=== PATIENT | male | born 1995 | race Caucasian/White ===

== ENCOUNTER 2022-05-04 12:46 | Emergency (ER) | payer MEDICAID, SELFPAY ==
[2022-05-04 13:01] VITALS: BP 141/88; PULSE 111; RESP 18; TEMP 37.2; O2SAT 98
--- NOTE | 2022-05-04 13:07 | XR_ITS ---
WS: [id number] Portable AP upright chest, 05/04/2022 Clinical Data: cough Comparison: None. Findings: No nodules, masses or effusions are seen. The heart is normal. The pulmonary vascularity is not increased. No pneumonia or pneumothorax is seen. XR/XR chest 1V portable [id number] Impression: Negative chest.
--- NOTE | 2022-05-04 13:24 | W.ED.URI ---
HPI - URI/Sore Throat General: Chief Complaint: General Medical Stated Complaint: coughing up black/joya mucus Time Seen by Provider: 05/04/22 13:05 Source: patient Mode of arrival: ambulatory Limitations: no limitations History of Present Illness: Patient is a 26-year-old male presents to ED today with complaints of a cough over the past week or so. States he is coughing up joya like phlegm. He is also complaining of some nasal congestion. He has no chest pain, shortness of breath, difficulty breathing. No fevers. He has not complained of a sore throat or difficulty swallowing. Patient is an otherwise healthy 26-year-old male with no known PMH. MD elicited complaint: cough Onset (ago): week(s) Consistency: intermittent Severity: mild Able to tolerate fluids by mouth: Yes Associated symptoms: Reports no associated symptoms and nasal congestion; Deny abdominal pain, chills, chest pain, diarrhea, ear or mastoid pain, fever(s), headache(s), nausea, sinus pain or vomiting Treatments prior to arrival: none Review of Systems Const: Denies: fever(s), chills, body aches, fatigue or malaise Eyes: Denies: change in vision or blurry vision ENMT: Reports: nasal discharge and nasal congestion; Denies: throat pain, odynophagia, dental pain, ear or mastoid pain, post nasal drip or sinus pain Card: Denies: chest pain, palpitations, irregular heart rhythm or lightheadedness Resp: Reports: productive cough and chest congestion; Denies: dyspnea, wheezing, stridor, pain on inspiration or hemoptysis GI: Denies: abdominal pain, nausea, vomiting or diarrhea Musc: Denies: neck pain or back pain Skin/Breast: Denies: rash Neuro: Denies: headache(s) Physical Exam Const: COMMON NORMALS: no acute distress, average body habitus, patient oriented x3, no limitations, healthy appearing, alert and well nourished ORIENTATION/CONSCIOUSNESS: Yes awake, Yes oriented to person, Yes oriented to place and Yes oriented to time HENMT: COMMON NORMALS: normocephalic and atraumatic HEAD & SCALP: normal to inspection, normocephalic and atraumatic FACE & SINUS: normal facial exam MOUTH: Normal oral and palatal mucosa present, lip normal and tongue normal THROAT: posterior oropharynx normal Eye: GENERAL EYE: appearance normal, both eyes and all related structures Neck/C-Spine: COMMON NORMALS: no lymphadenopathy Resp: COMMON NORMALS: normal respiratory effort and clear to auscultation bilaterally AUSCULTATION: clear to auscultation bilaterally Cardio: COMMON NORMALS: regular rate and regular rhythm RATE: regular rate RHYTHM: regular rhythm Extremity: COMMON NORMALS: no clubbing, cyanosis or edema, no calf tenderness and no pedal edema GENERAL: Yes normal exam except as noted Neuro: [place] COMA SCALE: document GCS findings [place] coma scale eye opening: Spontaneous [place] coma scale verbal response: Orientated [place] coma scale motor response: Obey commands [place] coma scale total score: 15 COMMON NORMALS: patient oriented x3 SENSORIUM/ORIENTATION: Yes alert, Yes oriented to person, Yes oriented to place and Yes oriented to time Course Vital Signs: Vital signs: Vital Signs Temperature 98.9 F 05/04/22 13:01 Pulse Rate 111 H 05/04/22 13:01 Respiratory Rate 18 05/04/22 13:01 Blood Pressure 141/88 05/04/22 13:01 Pulse Oximetry 98 05/04/22 13:01 MDM - URI/Sore Throat Medical Decision Making Patient appears in no acute distress. Vital signs are stable. CXR is normal. Most likely patient having a viral illness with cough. Discussed conservative therapies at home. He can follow-up with PCP in 1 to 2 weeks if symptoms persist. Return to ED precautions given. Lab Data Radiology Impressions Chest X-Ray 05/04/22 13:07 Impression: Negative chest. Discharge Plan Discharge Patient Disposition: Home Clinical Impression: Viral URI with cough Condition: Stable Discharge Orders: Discharge ED (Routine); Ordered 05/04/22 Ordered By: Anette Bonilla Patient Instructions: Acute Cough (ED) Activity Restrictions/Additional Instructions: Your chest x-ray here was normal. As we discussed continue conservative therapies at home such as honey/lemon, [id number] cough medications, throat lozenges, etc. please follow-up with your primary care provider in 1 to 2 weeks if symptoms persist. You may return to the emergency department for chest pain, shortness of breath, difficulty breathing, fevers, or any other concerns you may have. Coding Level of Care Code ED [employer] for Leti Lamb
== END 2022-05-04 13:35 | disposition home or self-care (01) ==
PROVIDERS: Emergency Provider Physician Assistant
DX: J06.9 Acute upper respiratory infection, unspecified (principal)
CPT/HCPCS: 71045; 99283

== ENCOUNTER 2024-07-18 09:00 | Emergency (ER) | payer SELFPAY ==
[2024-07-18 09:07] VITALS: BP 152/93; PULSE 100; RESP 18; TEMP 36.7; O2SAT 98; BMI 28.9
--- NOTE | 2024-07-18 09:12 | W.ED.GENADLT ---
HPI - General Adult General: Chief complaint: General Medical Stated complaint: trouble moving L side of face Time Seen by Provider: 07/18/24 09:03 History of Present Illness: 28-year-old male presents emergency room with complaint of trouble moving left side of his face. Yesterday began with some discomfort behind his left ear which is still intermittently present. He has noticed difficult time closing his left eye some watering of the eye abnormal taste sensation as well as weakness slowly limited to the left side of his face no weakness in the extremities no other symptoms. Triage nurse was assessing the patient had concerns and asked me to see the patient in the triage area. 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 Triage be completed will reevaluate again when patient is placed in a room. Associated symptoms: Deny chest pain, dyspnea or rash Related Data Home Medications ?Medication ?Instructions ?Recorded ?Confirmed ibuprofen 200 mg tablet (Advil) 800 mg PO Q6H PRN Fever Or Pain 07/18/24 07/18/24 Previous Rx's ?Medication ?Instructions ?Recorded prednisone 50 mg tablet 50 mg PO DAILY 7 days #7 tabs 07/18/24 Allergies Allergy/AdvReac Type Severity Reaction Status Date / Time No Known Allergies Allergy Verified 12/03/22 17:18 Review of Systems Const: Denies: fever(s) or chills Card: Denies: chest pain Resp: Denies: dyspnea GI: Denies: abdominal pain : Denies: dysuria, urinary frequency or urinary urgency Musc: Denies: neck pain or back pain Skin/Breast: Denies: rash Physical Exam Const: GENERAL APPEARANCE: cooperative ORIENTATION/CONSCIOUSNESS: Yes awake, Yes oriented to person, Yes oriented to place and Yes oriented to time HENMT: COMMON NORMALS: normocephalic, atraumatic and hearing grossly normal bilaterally HEAD & SCALP: normocephalic and atraumatic Resp: COMMON NORMALS: normal respiratory effort, No retractions, No use of accessory muscles and clear to auscultation bilaterally AUSCULTATION: clear to auscultation bilaterally Cardio: COMMON NORMALS: regular rate, regular rhythm and No murmurs present (Cardio) RATE: regular rate RHYTHM: regular rhythm GI: COMMON NORMALS: Soft to palpation and No hepatosplenomegaly present AUSCULTATION: Yes normoactive bowel sounds PALPATION: Yes Soft to palpation, No Tenderness to palpation present (GI), No Guarding due to palpation present (GI) and Yes No hepatosplenomegaly present Extremity: COMMON NORMALS: normal to inspection, capillary refill normal, no clubbing, cyanosis or edema, no calf tenderness and no pedal edema Neuro: SENSORIUM/ORIENTATION: Yes oriented to person, Yes oriented to place and Yes oriented to time OTHER: NIH facial weakness is an isolated deficit on the left side of the face otherwise no other right eye ataxia sensation abnormality has diminished taste on the left side of the jaw altered sensation posterior radicular pain as well. Skin: COMMON NORMALS: no rashes or lesions noted GENERAL SKIN EXAM: no rashes or lesions noted Course Vital Signs: Vital signs: Vital Signs Temperature 98.1 F 07/18/24 09:07 Pulse Rate 102 H 07/18/24 13:13 Respiratory Rate 18 07/18/24 09:07 Blood Pressure 152/93 07/18/24 09:07 Pulse Oximetry 98 07/18/24 13:13 Oxygen Delivery Me thod Room Air 07/18/24 09:07 MDM - General Adult Medical Decision Making Elizondo's palsy start on prednisone 50 mg daily for 7 days discussed findings with the patient and Lab Data I reviewed the patient's lab results. 07/18/24 10:12 07/18/24 10:12 Laboratory Results WBC 8.26 10^3/uL (3.29-11.43) 07/18/24 10:12 RBC 5.09 10^6/uL (3.85-5.65) 07/18/24 10:12 Hgb 15.10 g/dL (11.27-16.99) 07/18/24 10:12 Hct 44.8 % (37-53) 07/18/24 10:12 MCV 88.0 fl (82-101) 07/18/24 10:12 MCH 29.7 pg (27-33) 07/18/24 10:12 MCHC 33.7 g/dL (30-55) 07/18/24 10:12 RDW 12.2 % (12.1-15.1) 07/18/24 10:12 Plt Count 259 10^3/cmm (157-399) 07/18/24 10:12 MPV 8.6 fL (7.4-10.4) 07/18/24 10:12 Neut % (Auto) 79.0 % 07/18/24 10:12 Lymph % (Auto) 13.1 % 07/18/24 10:12 [place] % (Auto) 6.9 % 07/18/24 10:12 Eos % (Auto) 0.8 % 07/18/24 10:12 Baso % (Auto) 0.1 % 07/18/24 10:12 Neut # (Auto) 6.52 10^3/uL (1.8-7.7) 07/18/24 10:12 Lymph # (Auto) 1.1 10^3/uL (0.8-4.8) 07/18/24 10:12 [place] # (Auto) 0.6 10^3/uL (0.2-0.9) 07/18/24 10:12 Eos # (Auto) 0.1 10^3/uL (0.0-0.8) 07/18/24 10:12 Baso # (Auto) 0.0 10^3/uL (0.0-0.1) 07/18/24 10:12 Nucleated RBC % (auto) 0 % 07/18/24 10:12 Nucleated RBCs # 0.0 /100WBC 07/18/24 10:12 Sodium 141 mmol/L (136-145) 07/18/24 10:12 Potassium 4.3 mmol/L (3.5-5.1) 07/18/24 10:12 Chloride 102 mmol/L (98-107) 07/18/24 10:12 Carbon Dioxide 30 mmol/L (22-29) H 07/18/24 10:12 Anion Gap 13.3 (5-19) 07/18/24 10:12 BUN 12 mg/dL (6-20) 07/18/24 10:12 Creatinine 0.7 mg/dL (0.7-1.2) 07/18/24 10:12 GFR Calculation 132.4 mL/min (90-130) H 07/18/24 10:12 Glucose 103 mg/dL (65-115) 07/18/24 10:12 Calculated Osmolality 292 mOsm/kg (285-295) 07/18/24 10:12 Calcium 9.7 mg/dL (8.5-10.5) 07/18/24 10:12 Total Bilirubin 0.3 mg/dL (0.15-1.2) 07/18/24 10:12 AST 13 U/L (0-40) 07/18/24 10:12 ALT 10 U/L (0-41) 07/18/24 10:12 Alkaline Phosphatase 93 U/L (40-130) 07/18/24 10:12 Total Protein 7.0 g/dL (6.6-8.7) 07/18/24 10:12 Albumin 4.8 g/dL (3.5-5.2) 07/18/24 10:12 Globulin 2.2 g/dL (1.3-4.6) 07/18/24 10:12 No radiology studies performed this visit Discharge Plan Discharge Patient Disposition: Home Clinical Impression: Left-sided Elizondo's palsy Condition: Stable Prescriptions: New prednisone 50 mg tablet 50 mg PO DAILY 7 Days Qty: 7 0RF No Action ibuprofen [Advil] 200 mg Tablet 800 mg PO Q6H PRN (Reason: Fever Or Pain) Discharge Orders: Discharge ED (Routine); Ordered 07/18/24 Ordered By: Torsten Patton Discharge Diet: Usual diet Discharge Activity: Resume usual activity Patient Instructions: Elizondo Palsy (ED), Opioid Safety, Pain Management Activity Restrictions/Additional Instructions: Thank you for choosing [facility] for your healthcare needs today. It is very important that you follow up as instructed or that you return to the Emergency Department should you have concerns or if your condition changes or worsens in any way. Print Language: Luxembourger Coding Level of Care Code ED [employer] for Leti Lamb
[2024-07-18 10:20] LABS: Basophils % 0.1 %; Eosinophils # 0.1 10^3/uL (0.0-0.8); Eosinophils % 0.8 %; Hematocrit 44.8 % (37-53); Lymphocytes # 1.1 10^3/uL (0.8-4.8); Lymphocytes % 13.1 %; Mean Corpuscular HGB Conc 33.7 g/dL (30-55); Mean Corpuscular Hemoglobin 29.7 pg (27-33); Mean Platelet Volume 8.6 fL (7.4-10.4); Monocytes # 0.6 10^3/uL (0.2-0.9); Monocytes % 6.9 %; Neutrophils # 6.52 10^3/uL (1.8-7.7); Nucleated Red Blood Cells % 0 %; Platelet Count 259 10^3/cmm (157-399); Red Blood Count 5.09 10^6/uL (3.85-5.65); Red Cell Distribution Width 12.2 % (12.1-15.1); White Blood Count 8.26 10^3/uL (3.29-11.43)
[2024-07-18 10:43] LABS: Alanine Aminotransferase 10 U/L (0-41); Albumin Level 4.8 g/dL (3.5-5.2); Alkaline Phosphatase 93 U/L (40-130); Anion Gap 13.3 (5-19); Aspartate Amino Transferase 13 U/L (0-40); Blood Urea Nitrogen 12 mg/dL (6-20); Calcium 9.7 mg/dL (8.5-10.5); Carbon Dioxide 30 mmol/L (22-29); Chloride 102 mmol/L (98-107); Creatinine Clr Calc Pharmacy 170.1979; Globulin 2.2 g/dL (1.3-4.6); Glomerular Filtration Rate 132.4 mL/min (90-130); Glucose 103 mg/dL (65-115); Osmolality Calculated 292 mOsm/kg (285-295); Potassium 4.3 mmol/L (3.5-5.1); Sodium 141 mmol/L (136-145); Total Bilirubin 0.3 mg/dL (0.15-1.2)
--- NOTE | 2024-07-18 11:37 | PC.PHAR ---
Patient states he took an allergy pill yesterday and not sure which one and some eye drops. I didn't know names to list.
--- NOTE | 2024-07-18 11:48 | ECG_ITS ---
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 Measurements Intervals [place] Rate: 92 P: 65 MA: 152 QRS: 44 QRSD: 100 T: 2 QT: 334 QTc: 414 Interpretive Statements SINUS RHYTHM No previous ECG available for comparison Electronically Signed On 07-18-2024 22:03:09 CDT by Jojo Gray M.D. [email or web address]
[2024-07-18 13:13] VITALS: PULSE 102; O2SAT 98
== END 2024-07-18 13:13 | disposition home or self-care (01) ==
PROVIDERS: Emergency Provider Family Medicine
DX: G51.0 Bell's palsy (principal)
CPT/HCPCS: 36415; 80053; 85025; 93005; 99284